=== PATIENT | female | born 1965 | race Caucasian/White ===

== ENCOUNTER 2018-03-21 09:25 | Day surgery (SDC) | payer MEDICAID ==
[2018-03-21] MEDS ORDERED: LIDOcaine/PRILOcaine 5gm cream TP ONE ×2 (09:45→10:16)
[2018-03-21] MEDS ORDERED: ALBU18HF2 INH (10:12)
--- NOTE | 2018-03-21 11:00 | NUR ---
Patient ambulated independently from [facility] and was admitted to outpatient wound care for physician visit with Lawernce Baig MD. Dressing removed, wound cleansed and Emla cream applied per order. New patient assessment completed with review of patient's medical history and current medications. 1010 - Dr. Baig at bedside accompanied by RN. Wound assessed, time out performed by MD/RN. Wound debrided as detailed in the physician progress/procedure note. Plan of care discussed with patient. Dressings placed per MD orders. Patient instructed on the signs and symptoms of infection and to call the Wound Center if any occur or to go to the ED if we are closed: Increased pain in wound Increase in drainage from the wound Redness in the skin surrounding the wound Bleeding from the wound Temperature of 101 or greater Patient instructed that the weight of their body puts a large amount of pressure on their wounds. This pressure keeps the new tissue from growing and inhibits new blood vessels from forming. Explained that, if they continue to bear weight on a body part that has a wound, the time it takes to heal the wound increases, the wound may get worse or the wound may not heal at all. Patient verbalized understanding of all discharge instructions and plan of care and ambulated independently out to [facility] in stable condition with no sign or symptom of distress at time of discharge.
== END 2018-03-21 10:35 | disposition home or self-care (01) ==
LOC: WOUND CARE 09:25
PROVIDERS: ATTEND Surgery
DX: T81.89XD Other complications of procedures, not elsewhere classified, subsequent encounter (principal); L98.492 Non-pressure chronic ulcer of skin of other sites with fat layer exposed; J45.909 Unspecified asthma, uncomplicated; Z87.891 Personal history of nicotine dependence; Y83.8 Other surgical procedures as the cause of abnormal reaction of the patient, or of later complication, without mention of misadventure at the time of the procedure
CPT/HCPCS: A6021; A6206; A6212

== ENCOUNTER 2018-03-28 09:43 | Day surgery (SDC) | payer MEDICAID ==
[~2018-03-28 09:43] MED LIST: ALBU18HF2 INH
[2018-03-28] MEDS ORDERED: LIDOcaine/PRILOcaine 5gm cream TP ONE (10:01)
[2018-03-28] MEDS ORDERED: LIDOcaine 1% (10mg/ml) 2ml vial SQ ONE (10:30)
[2018-03-28] MEDS ORDERED: LIDOcaine 1%/PF 5ML 10 MG/ML VIAL SQ ONE (10:40)
--- NOTE | 2018-03-28 11:00 | NUR ---
Patient ambulated independently from [facility] and was admitted to outpatient wound care for physician visit with Lawrence Baig MD. Dressing removed, wound cleansed. Patient assessed for changes in conditions, medications and medical history. 1025 - Dr. Baig at bedside accompanied by RN. Wound assessed, time out performed by MD/RN. Wound debrided as detailed in the physician progress/procedure note. Plan of care discussed with patient. Dressings placed per MD orders. Patient instructed on the signs and symptoms of infection and to call the Wound Center if any occur or to go to the ED if we are closed: Increased pain in wound Increase in drainage from the wound Redness in the skin surrounding the wound Bleeding from the wound Temperature of 101 or greater Patient instructed that the weight of their body puts a large amount of pressure on their wounds. This pressure keeps the new tissue from growing and inhibits new blood vessels from forming. Explained that, if they continue to bear weight on a body part that has a wound, the time it takes to heal the wound increases, the wound may get worse or the wound may not heal at all. Patient verbalized understanding of all discharge instructions and plan of care and ambulated independently out to [facility] in stable condition with no sign or symptom of distress at time of discharge.
== END 2018-03-28 11:07 | disposition home or self-care (01) ==
LOC: WOUND CARE 09:43
PROVIDERS: ATTEND Surgery
DX: T81.89XD Other complications of procedures, not elsewhere classified, subsequent encounter (principal); L98.492 Non-pressure chronic ulcer of skin of other sites with fat layer exposed; J45.909 Unspecified asthma, uncomplicated; Z87.891 Personal history of nicotine dependence; Y83.8 Other surgical procedures as the cause of abnormal reaction of the patient, or of later complication, without mention of misadventure at the time of the procedure
CPT/HCPCS: A6021; A6206; A6212; J3490

== ENCOUNTER 2018-04-03 08:50 | Day surgery (SDC) | payer MEDICAID ==
[2018-04-03] MEDS ORDERED: LIDOcaine/PRILOcaine 5gm cream TP ONE (09:47)
--- NOTE | 2018-04-03 11:00 | NUR ---
Patient ambulated independently from [facility] and was admitted to outpatient wound care for physician visit with Lawrence Baig MD. Dressing removed, wound cleansed and Emla cream applied per order. Patient assessed for changes in conditions, medications and medical history. 1030 - Dr. Baig at bedside accompanied by RN. Wound assessed, time out performed by MD/RN. Wound debrided as detailed in the physician progress/procedure note. Plan of care discussed with patient. Dressings placed per MD orders. Patient instructed on the signs and symptoms of infection and to call the Wound Center if any occur or to go to the ED if we are closed: Increased pain in wound Increase in drainage from the wound Redness in the skin surrounding the wound Bleeding from the wound Temperature of 101 or greater Patient instructed that the weight of their body puts a large amount of pressure on their wounds. This pressure keeps the new tissue from growing and inhibits new blood vessels from forming. Explained that, if they continue to bear weight on a body part that has a wound, the time it takes to heal the wound increases, the wound may get worse or the wound may not heal at all. Patient verbalized understanding of all discharge instructions and plan of care and ambulated independently out to [facility] in stable condition with no sign or symptom of distress at time of discharge.
== END 2018-04-03 10:56 | disposition home or self-care (01) ==
LOC: WOUND CARE 08:50
PROVIDERS: ATTEND Surgery
DX: T81.89XD Other complications of procedures, not elsewhere classified, subsequent encounter (principal); L98.492 Non-pressure chronic ulcer of skin of other sites with fat layer exposed; J45.909 Unspecified asthma, uncomplicated; Z87.891 Personal history of nicotine dependence; Y83.8 Other surgical procedures as the cause of abnormal reaction of the patient, or of later complication, without mention of misadventure at the time of the procedure
CPT/HCPCS: 11042; A6209; A6222; A6021

== ENCOUNTER 2018-04-12 11:37 | Outpatient (CLI) | payer MEDICAID ==
--- NOTE | 2018-04-12 13:30 | NUR ---
Patient ambulated independently from [facility] and was admitted to outpatient wound care for physician visit with Lawrence Baig MD. Dressing removed, wound cleansed. Patient assessed for changes in conditions, medications and medical history. 1047 - Dr. Baig at bedside accompanied by RN. Wound assessed by MD; new orders written. Plan of care discussed with patient by MD. Dressings placed per MD orders. Patient is discharged from the wound clinic to follow up on an as needed basis. Patient instructed on the signs and symptoms of infection and to call the Wound Center if any occur or to go to the ED if we are closed: Increased pain in wound Increase in drainage from the wound Redness in the skin surrounding the wound Bleeding from the wound Temperature of 101 or greater Patient instructed that the weight of their body puts a large amount of pressure on their wounds. This pressure keeps the new tissue from growing and inhibits new blood vessels from forming. Explained that, if they continue to bear weight on a body part that has a wound, the time it takes to heal the wound increases, the wound may get worse or the wound may not heal at all. Patient verbalized understanding of all discharge instructions and plan of care and ambulated independently out to [facility] in stable condition with no sign or symptom of distress at time of discharge.
== END 2018-04-12 13:19 | disposition home or self-care (01) ==
LOC: WOUND CARE 11:37
PROVIDERS: ATTEND Surgery
DX: T81.89XD Other complications of procedures, not elsewhere classified, subsequent encounter (principal); L98.492 Non-pressure chronic ulcer of skin of other sites with fat layer exposed; J45.909 Unspecified asthma, uncomplicated; Z87.891 Personal history of nicotine dependence; Y83.8 Other surgical procedures as the cause of abnormal reaction of the patient, or of later complication, without mention of misadventure at the time of the procedure
CPT/HCPCS: A6209; G0463; A6021; A6206